=== PATIENT | male | born 1960 | race Caucasian/White ===

== ENCOUNTER 2025-06-04 09:21 | Inpatient (IN) | payer MEDICARE ==
[~2025-06-04] VITALS: Ht 167.6 cm; Wt 73.5 kg
[2025-06-04 10:36] VITALS: BP 119/76; TEMP 97.8
[2025-06-04 10:55] VITALS: BP 119/76; TEMP 97.8
[2025-06-04 18:00] VITALS: BP 140/82; TEMP 98.6; O2SAT 100
[2025-06-04 19:38] LABS: PLATELET COUNT (AUTO) 229 K/uL (152-348); RED BLOOD CELL COUNT(AUTO) 4.05 MIL/uL (4.06-5.63); RED CELL DISTRIBUTION WIDTH 13.0 % (12.1-16.2); WHITE BLOOD COUNT (AUTO) 7.7 K/uL (3.6-10.2)
[2025-06-04 19:48] LABS: CREATININE 0.6 mg/dL (0.6-1.3); SODIUM SERUM 138 mmol/L (136-145); UREA NITROGEN, BLOOD 14 mg/dL (7-18)
[2025-06-04 20:15] LABS: *BILIRUBIN,URIN NEGATIVE (NEGATIVE); *BLOOD, URINE 3+ (NEGATIVE); *CLARITY,URINE CLEAR (CLEAR); *COLOR,URINE YELLOW (YELLOW); *KETONES,URINE NEGATIVE (NEGATIVE); *PROTEIN,URINE 2+ (NEGATIVE); *UROBILINOGEN,URINE 1.0 E.U./dl (NORMAL); LEUKOCYTE ESTERASE ,URINE TRACE (NEGATIVE); NITRITE, URINE NEGATIVE (NEGATIVE); UGLUCOSE NEGATIVE (NEGATIVE)
[2025-06-04] MEDS ORDERED: TAMS-3 PO (20:21)
[2025-06-04] MEDS ORDERED: LOSA25TA3 PO (20:21)
[2025-06-04] MEDS ORDERED: METO-356 PO (20:21)
[2025-06-04] MEDS ORDERED: ATOR20TA PO (20:21)
[2025-06-04] MEDS ORDERED: MELA5TAB PO (20:21)
[2025-06-04] MEDS ORDERED: ALPR0.255 PO (20:21)
[2025-06-04 20:45] LABS: SQUAMOUS EPITHELIAL CELL,UR FEW /HPF (NONE SEEN)
[2025-06-04 21:00] VITALS: BP 153/77; TEMP 98.2; O2SAT 94
[2025-06-04] MEDS ORDERED: MELATONIN 3 MG TABLET PO PRN (21:45)
[2025-06-04] MEDS: ALPRAZOLAM 0.25 MG TABLET PO PRN (21:59)
[2025-06-04] MEDS: ACETAMINOPHEN 500 MG TABLET PO PRN (22:57)
[2025-06-05] MEDS: MELATONIN 3 MG TABLET PO PRN (02:50)
[2025-06-05 06:40] VITALS: BP 133/74; TEMP 98.4; O2SAT 96
[2025-06-05 08:00] VITALS: BP 113/84; TEMP 97.7; O2SAT 97
[2025-06-05] MEDS: ATORVASTATIN 20 MG TABLET PO SCH (09:15)
[2025-06-05] MEDS: TAMSULOSIN HCL 0.4 MG CAP.SR.24H PO SCH (09:15)
[2025-06-05] MEDS: METOPROLOL SUCCINATE XL 25 MG TAB.SR.24H PO SCH ×2 (09:19→20:45)
[2025-06-05] MEDS: LOSARTAN POTASSIUM 25 MG TABLET PO SCH (09:35)
[2025-06-05] MEDS ORDERED: HYDROCODONE/APAP 5-325MG TABLET PO PRN (11:45)
[2025-06-05 16:03] VITALS: BP 127/73; TEMP 98.3; O2SAT 98
[2025-06-05 20:00] VITALS: BP 127/79; TEMP 97.3; O2SAT 98
[2025-06-06 05:00] VITALS: BP 130/85; TEMP 98.1; O2SAT 97
[2025-06-06 08:06] VITALS: BP 140/73; TEMP 98.1; O2SAT 98
[2025-06-06 16:21] VITALS: BP 135/74; TEMP 97.6; O2SAT 97
[2025-06-06 20:04] VITALS: BP 126/70; TEMP 98.3; O2SAT 95
[2025-06-07 06:49] VITALS: BP 139/76; TEMP 97.4; O2SAT 98
[2025-06-07 08:00] VITALS: BP 123/70; TEMP 98.2; O2SAT 98
[2025-06-07] MEDS ORDERED: BISACODYL 5 MG TABLET.DR PO PRN (13:30)
[2025-06-07 20:00] VITALS: BP 128/72; TEMP 98.2; O2SAT 97
[2025-06-08 07:23] VITALS: BP 117/78; TEMP 98.6; O2SAT 99
[2025-06-08 09:48] VITALS: BP 120/72; TEMP 97.6; O2SAT 97
[2025-06-08 16:00] VITALS: BP 117/76; TEMP 97.2; O2SAT 98
[2025-06-08 20:00] VITALS: BP 135/85; TEMP 97.8; O2SAT 97
[2025-06-09 05:00] VITALS: BP 134/77; TEMP 97.2; O2SAT 97
[2025-06-09 08:11] VITALS: BP 160/82; TEMP 97.8; O2SAT 98
[2025-06-09 16:24] VITALS: BP 122/72; TEMP 97.7; O2SAT 97
[2025-06-09 21:29] VITALS: BP 134/93; TEMP 98.1; O2SAT 97
[2025-06-10 06:21] VITALS: BP 125/70; TEMP 97.3; O2SAT 97
[2025-06-10 08:00] VITALS: BP 150/87; TEMP 98; O2SAT 98
[2025-06-10] MEDS: TAMSULOSIN HCL 0.4 MG CAP.SR.24H PO SCH (09:21)
[2025-06-10 09:22] VITALS: BP 150/87
== END 2025-06-10 13:10 | disposition home health service (06) | DRG 560 ==
PROVIDERS: ADMIT Physical Medicine & Rehabilitation Pain Medicine; ATTEND Physical Medicine & Rehabilitation Pain Medicine
DX: S72.012D Unspecified intracapsular fracture of left femur, subsequent encounter for closed fracture with routine healing (principal); D68.59 Other primary thrombophilia; E78.5 Hyperlipidemia, unspecified; I10 Essential (primary) hypertension; I48.0 Paroxysmal atrial fibrillation; N40.1 Benign prostatic hyperplasia with lower urinary tract symptoms; R33.8 Other retention of urine; W11.XXXD Fall on and from ladder, subsequent encounter; F41.9 Anxiety disorder, unspecified; R00.0 Tachycardia, unspecified; Z88.8 Allergy status to other drugs, medicaments and biological substances
CPT/HCPCS: 36415; 85025; 97535-GO-CO; A4663; A9150